=== PATIENT | female | born 1990 | race Caucasian/White ===

== ENCOUNTER → 2018-02-23 | Outpatient (CLI) | payer OTHER | END | disposition home or self-care (01) | LOC: RAD 11:57 | PROVIDERS: ATTEND Internal Medicine Hematology & Oncology | DX: R76.12 Nonspecific reaction to cell mediated immunity measurement of gamma interferon antigen response without active tuberculosis (principal) | CPT/HCPCS: 71045 ==

== ENCOUNTER → 2018-07-15 | Outpatient (CLI) | payer OTHER | END | disposition home or self-care (01) | LOC: LAB 08:23 | PROVIDERS: ATTEND Obstetrics & Gynecology | DX: E22.1 Hyperprolactinemia (principal) | CPT/HCPCS: 36415; 84146 ==

== ENCOUNTER → 2018-07-22 | Outpatient (CLI) | payer OTHER ==
[2018-07-22 09:06] LABS: ALANINE AMINOTRANSFERASE 42 U/L (12-78); ALBUMIN 3.8 g/dL (3.4-5.0); ANION GAP 7 mmol/L (5-15); CALCIUM 8.5 mg/dL (8.5-10.1); CHLORIDE 107 mmol/L (98-107); CREATININE 0.49 mg/dL (0.55-1.02)
[2018-07-22 09:09] LABS: ALKALINE PHOSPHATASE 86 U/L (45-117); BILIRUBIN,TOTAL 0.3 mg/dL (0.2-1.0); TOTAL PROTEIN 7.3 g/dL (6.4-8.2)
== END | disposition home or self-care (01) ==
LOC: LAB 08:22
PROVIDERS: ATTEND Obstetrics & Gynecology
DX: R79.9 Abnormal finding of blood chemistry, unspecified (principal)
CPT/HCPCS: 36415; 80053

== ENCOUNTER 2019-02-18 13:08 | Outpatient (CLI) | payer OTHER ==
[~2019-02-18] VITALS: Ht 154.9 cm; Wt 69.5 kg
== END 2019-02-18 15:30 | disposition home or self-care (01) ==
LOC: LDOP 13:08
PROVIDERS: ATTEND Obstetrics & Gynecology
DX: O46.92 Antepartum hemorrhage, unspecified, second trimester (principal); O32.1XX0 Maternal care for breech presentation, not applicable or unspecified; Z3A.23 23 weeks gestation of pregnancy
CPT/HCPCS: 59025; 76815; 99211; G0463

== ENCOUNTER → 2019-03-17 | Outpatient (CLI) | payer OTHER ==
[2019-03-17 09:29] LABS: BASOPHILS # (AUTO) 0.02 x10^3/uL (0-0.1); BASOPHILS % (AUTO) 0 % (0-1); EOSINOPHILS # (AUTO) 0.02 x10^3/uL (0-0.4); EOSINOPHILS % (AUTO) 0 % (1-7); LYMPHOCYTES # (AUTO) 1.15 x10^3/uL (1-3.4); LYMPHOCYTES % (AUTO) 15 % (22-44); MD NO; MEAN CORPUSCULAR HEMOGLOBIN 26.2 pg (27.0-34.8); MEAN CORPUSCULAR HGB CONC 32.6 g/dL (32.4-35.8); MEAN CORPUSCULAR VOLUME 80.5 fL (80-100); MEAN PLATELET VOLUME 6.8 fL (7.4-10.4); MONOCYTES # (AUTO) 0.42 x10^3/uL (0.2-0.8); MONOCYTES % (AUTO) 6 % (2-9); NEUTROPHILS # (AUTO) 5.96 x10^3/uL (1.8-6.8); NEUTROPHILS % (AUTO) 79 % (42-75); PLATELET COUNT 352 x10^3/uL (130-400); RED BLOOD COUNT 4.55 x10^6/uL (3.82-5.3); RED CELL DISTRIBUTION WIDTH 13.8 % (9.6-15.2)
== END | disposition home or self-care (01) ==
LOC: LAB 07:55
PROVIDERS: ATTEND Obstetrics & Gynecology
DX: Z34.82 Encounter for supervision of other normal pregnancy, second trimester (principal)
CPT/HCPCS: 36415; 82728; 82950; 85025; 86592

== ENCOUNTER 2019-04-19 11:14 | Outpatient (CLI) | payer OTHER ==
[2019-04-19 11:24] LABS: MEAN CORPUSCULAR HEMOGLOBIN 26.8 pg (27.0-34.8); MEAN CORPUSCULAR HGB CONC 32.7 g/dL (32.4-35.8); MEAN PLATELET VOLUME 6.6 fL (7.4-10.4); PLATELET COUNT 339 x10^3/uL (130-400); RED BLOOD COUNT 4.73 x10^6/uL (3.82-5.3); RED CELL DISTRIBUTION WIDTH 14.6 % (9.6-15.2)
== END 2019-04-19 23:59 | disposition home or self-care (01) ==
LOC: LAB 11:14
PROVIDERS: ATTEND Obstetrics & Gynecology
DX: O99.019 Anemia complicating pregnancy, unspecified trimester (principal); Z3A.36 36 weeks gestation of pregnancy
CPT/HCPCS: 36415; 82728; 85027

== ENCOUNTER 2019-06-01 05:50 | Inpatient (IN) | payer OTHER ==
[~2019-06-01] VITALS: Ht 154.9 cm; Wt 77.3 kg
[2019-06-01 06:19] VITALS: BP 149/75
[2019-06-01] MEDS ORDERED: OXYTOCIN 30U/ 0.9% NaCL 500ML 500 ML IV ONE (06:43)
[2019-06-01] MEDS ORDERED: D5%-LACTATED RINGERS 1,000 ML IV SCH (06:43)
[2019-06-01] MEDS ORDERED: FENTANYL PF 100 MCG/2ML IVPush PRN (07:00)
[2019-06-01] MEDS ORDERED: FENTANYL PF 100 MCG/2ML IV PRN (07:00)
[2019-06-01] MEDS ORDERED: ONDANSETRON 2MG/ML, 2ML IVPush PRN (07:00)
[2019-06-01] MEDS ORDERED: SODIUM CITRATE/CITRIC ACID 15 ML UDC PO PRN (07:00)
[2019-06-01] MEDS ORDERED: [UNRECOGNIZED DRUG - OTHER] IV PRN ×2 (07:00→10:34)
[2019-06-01] MEDS ORDERED: METOCLOPRAMIDE 5 MG/ML, 2ML IVPush PRN (07:00)
[2019-06-01] MEDS ORDERED: TERBUTALINE 1 MG/ML, 1ML SQ PRN (07:00)
[2019-06-01] MEDS ORDERED: FENTANYL PF 100 MCG/2ML ONE (07:35)
[2019-06-01 07:47] LABS: BASOPHILS # (AUTO) 0.02 x10^3/uL (0-0.1); BASOPHILS % (AUTO) 0 % (0-1); EOSINOPHILS # (AUTO) 0.01 x10^3/uL (0-0.4); EOSINOPHILS % (AUTO) 0 % (1-7); LYMPHOCYTES # (AUTO) 1.03 x10^3/uL (1-3.4); LYMPHOCYTES % (AUTO) 12 % (22-44); MD NO; MEAN CORPUSCULAR HEMOGLOBIN 26.3 pg (27.0-34.8); MEAN CORPUSCULAR HGB CONC 32.5 g/dL (32.4-35.8); MEAN PLATELET VOLUME 6.9 fL (7.4-10.4); MONOCYTES # (AUTO) 0.49 x10^3/uL (0.2-0.8); MONOCYTES % (AUTO) 6 % (2-9); NEUTROPHILS # (AUTO) 7.19 x10^3/uL (1.8-6.8); NEUTROPHILS % (AUTO) 82 % (42-75); PLATELET COUNT 299 x10^3/uL (130-400); RED BLOOD COUNT 5.04 x10^6/uL (3.82-5.3); RED CELL DISTRIBUTION WIDTH 15.5 % (9.6-15.2)
[2019-06-01] MEDS: LACTATED RINGERS 1,000 ML IV SCH ×2 (07:55→12:16)
[2019-06-01] MEDS ORDERED: REMIFENTANIL 3 MG/30 ML PCA IV PRN (08:00)
[2019-06-01] MEDS ORDERED: NEWBORN KIT ONE (09:13)
[2019-06-01 09:37] LABS: MICROSCOPIC INDICATED
[2019-06-01] MEDS ORDERED: ONDANSETRON 2MG/ML, 2ML ONE (10:15)
[2019-06-01] MEDS ORDERED: MISOPROSTOL 200 MCG TABLET ONE (10:37)
[2019-06-01] MEDS ORDERED: LIDOCAINE 1%, 20ML ONE (10:37)
[2019-06-01] MEDS ORDERED: OXYTOCIN 30U/ 0.9% NaCL 500ML 500 ML ONE (11:11)
[2019-06-01] MEDS: OXYTOCIN 30U/ 0.9% NaCL 500ML 500 ML IV SCH ×2 (11:38→21:38)
[2019-06-01] MEDS: PRENATAL VIT/IRON/FA 1 EACH TABLET PO SCH (12:00)
[2019-06-01] MEDS ORDERED: OXYcodone/APAP 5/325MG TABLET PO PRN ×2 (12:00)
[2019-06-01] MEDS ORDERED: CALCIUM CARBONATE 500 MG TAB.CHEW PO PRN (12:00)
[2019-06-01] MEDS ORDERED: ONDANSETRON 2MG/ML, 2ML IV PRN (12:00)
[2019-06-01] MEDS ORDERED: DOCUSATE 100 MG CAPSULE PO PRN (12:00)
[2019-06-01] MEDS ORDERED: MISOPROSTOL 200 MCG TABLET PR PRN (12:00)
[2019-06-01] MEDS ORDERED: IBUPROFEN 600 MG TABLET ONE (12:13)
[2019-06-01] MEDS: IBUPROFEN 600 MG TABLET PO PRN ×2 (12:14→22:51)
[2019-06-01 12:37] LABS: ALANINE AMINOTRANSFERASE 11 U/L (12-78); ALBUMIN 2.3 g/dL (3.4-5.0); ANION GAP 12 mmol/L (5-15); CHLORIDE 107 mmol/L (98-107); CREATININE 0.37 mg/dL (0.55-1.02)
[2019-06-01 12:39] LABS: ALKALINE PHOSPHATASE 101 U/L (45-117); BILIRUBIN,TOTAL 0.2 mg/dL (0.2-1.0); TOTAL PROTEIN 5.7 g/dL (6.4-8.2)
[2019-06-01 13:30] VITALS: BP 135/79
[2019-06-01 16:30] VITALS: BP 137/83
[2019-06-01 19:09] LABS: BASOPHILS # (AUTO) 0.03 x10^3/uL (0-0.1); BASOPHILS % (AUTO) 0 % (0-1); EOSINOPHILS % (AUTO) 1 % (1-7); LYMPHOCYTES # (AUTO) 1.28 x10^3/uL (1-3.4); LYMPHOCYTES % (AUTO) 13 % (22-44); MEAN CORPUSCULAR HEMOGLOBIN 27.3 pg (27.0-34.8); MEAN CORPUSCULAR HGB CONC 33.2 g/dL (32.4-35.8); MEAN CORPUSCULAR VOLUME 82.2 fL (80-100); MEAN PLATELET VOLUME 7.3 fL (7.4-10.4); MONOCYTES # (AUTO) 0.81 x10^3/uL (0.2-0.8); MONOCYTES % (AUTO) 8 % (2-9); NEUTROPHILS # (AUTO) 8.02 x10^3/uL (1.8-6.8); NEUTROPHILS % (AUTO) 78 % (42-75); PLATELET COUNT 272 x10^3/uL (130-400); RED BLOOD COUNT 4.15 x10^6/uL (3.82-5.3); RED CELL DISTRIBUTION WIDTH 15.6 % (9.6-15.2)
[2019-06-01 19:10] LABS: MD NO
[2019-06-02] VITALS: BP 121/81
[2019-06-02 04:00] VITALS: BP 130/81
[2019-06-02 08:08] VITALS: BP 135/82
[2019-06-02] MEDS: PRENATAL VIT/IRON/FA 1 EACH TABLET PO SCH (08:40)
[2019-06-02] MEDS ORDERED: IBUP-1222 PO (11:11)
== END 2019-06-02 13:30 | disposition home or self-care (01) | DRG 807 ==
LOC: LDOP 05:50 → LDIP 06:39 → 2NW 13:37
PROVIDERS: ADMIT Obstetrics & Gynecology; ATTEND Obstetrics & Gynecology
PROC: 10E0XZZ Delivery of Products of Conception, External Approach (ICD-10-PCS; principal; 2019-06-01)
PROC: 0KQM0ZZ Repair Perineum Muscle, Open Approach (ICD-10-PCS; 2019-06-01)
PROC: 10907ZC Drainage of Amniotic Fluid, Therapeutic from Products of Conception, Via Natural or Artificial Opening (ICD-10-PCS; 2019-06-01)
DX: O99.02 Anemia complicating childbirth (principal); Z37.0 Single live birth; O70.1 Second degree perineal laceration during delivery; D50.9 Iron deficiency anemia, unspecified; O75.89 Other specified complications of labor and delivery; O99.344 Other mental disorders complicating childbirth; F41.8 Other specified anxiety disorders; Z3A.38 38 weeks gestation of pregnancy; M41.9 Scoliosis, unspecified
CPT/HCPCS: 36415; 80053; 81001; 84550; 85025; 86850; 86900; 89060; G0378; J2405; J3010; J2590; J7120; Q0114

== ENCOUNTER 2020-04-02 14:43 | Outpatient (CLI) | payer OTHER ==
[~2020-04-02 14:43] MED LIST: IBUP-1222 PO
[2020-04-02] MEDS ORDERED: PREN1TAB10 PO (15:06)
== END 2020-04-02 23:59 | disposition home or self-care (01) ==
LOC: STAR 14:43
PROVIDERS: ATTEND Thoracic Surgery (Cardiothoracic Vascular Surgery)
DX: Z02.9 Encounter for administrative examinations, unspecified (principal)

== ENCOUNTER 2020-10-17 16:27 | Outpatient (CLI) | payer OTHER ==
[~2020-10-17 16:27] MED LIST changes: +PREN1TAB10 PO
[2020-10-17 16:50] LABS: BASOPHILS % (AUTO) 0 % (0-1); EOSINOPHILS % (AUTO) 1 % (1-7); LYMPHOCYTES % (AUTO) 22 % (22-44); MEAN CORPUSCULAR HEMOGLOBIN 27.2 pg (27.0-34.8); MEAN CORPUSCULAR HGB CONC 33.6 g/dL (32.4-35.8); MEAN PLATELET VOLUME 6.7 fL (7.4-10.4); MONOCYTES % (AUTO) 9 % (2-9); NEUTROPHILS % (AUTO) 68 % (42-75); PLATELET COUNT 334 x10^3/uL (130-400); RED CELL DISTRIBUTION WIDTH 13.7 % (9.6-15.2)
[2020-10-17 16:56] LABS: MD NO
== END 2020-10-17 23:59 | disposition home or self-care (01) ==
LOC: LAB 16:27
PROVIDERS: ATTEND Obstetrics & Gynecology
DX: Z34.81 Encounter for supervision of other normal pregnancy, first trimester (principal); Z3A.00 Weeks of gestation of pregnancy not specified
CPT/HCPCS: 36415; 82728; 85025; 86592; 86762; 86850; 86900; 87086; 87340; 87806; G0475

== ENCOUNTER → 2021-01-31 | Outpatient (CLI) | payer OTHER ==
[2021-01-31 10:30] LABS: BASOPHILS % (AUTO) 0 % (0-1); EOSINOPHILS % (AUTO) 1 % (1-7); LYMPHOCYTES % (AUTO) 14 % (22-44); MEAN CORPUSCULAR HEMOGLOBIN 28.2 pg (27.0-34.8); MEAN CORPUSCULAR HGB CONC 33.9 g/dL (32.4-35.8); MEAN PLATELET VOLUME 6.5 fL (7.4-10.4); MONOCYTES % (AUTO) 6 % (2-9); NEUTROPHILS % (AUTO) 80 % (42-75); PLATELET COUNT 329 x10^3/uL (130-400); RED BLOOD COUNT 4.72 x10^6/uL (3.82-5.3); RED CELL DISTRIBUTION WIDTH 14.2 % (9.6-15.2)
[2021-01-31 10:32] LABS: MD NO
== END | disposition home or self-care (01) ==
LOC: LAB 08:44
PROVIDERS: ATTEND Clinical Nurse Specialist Women's Health
DX: Z34.82 Encounter for supervision of other normal pregnancy, second trimester (principal)
CPT/HCPCS: 36415; 82950; 85025; 86592

== ENCOUNTER 2021-03-22 13:25 | Inpatient (IN) | payer OTHER ==
[~2021-03-22] VITALS: Ht 154.9 cm; Wt 71.3 kg
[2021-03-22 13:43] VITALS: BP 133/75
[2021-03-22] MEDS ORDERED: TERBUTALINE 1 MG/ML, 1ML ONE (13:54)
[2021-03-22 14:00] LABS: MICROSCOPIC INDICATED
[2021-03-22] MEDS ORDERED: TERBUTALINE 1 MG/ML, 1ML SQ ONE (14:00)
[2021-03-22] MEDS ORDERED: BETAMETHASONE 6 MG/ML, 5ML IM ONE (14:53)
[2021-03-22] MEDS ORDERED: MAGNESIUM SULFATE PMX 4GM/100M 100 ML ONE (14:53)
[2021-03-22] MEDS ORDERED: MAGNESIUM SULF. PMX 20GM/500ML 500 ML IV ONE (14:53)
[2021-03-22] MEDS: BETAMETHASONE 6 MG/ML, 5ML IM SCH (14:59)
[2021-03-22] MEDS ORDERED: MAGNESIUM SULFATE PMX 4GM/100M 100 ML IVPB ONE (15:00)
[2021-03-22] MEDS: LACTATED RINGERS 1,000 ML IV PRN ×2 (15:05→22:13)
[2021-03-22] MEDS: MAGNESIUM SULF. PMX 20GM/500ML 500 ML IV SCH (16:06)
[2021-03-22 16:10] LABS: BASOPHILS % (AUTO) 0 % (0-1); EOSINOPHILS % (AUTO) 0 % (1-7); LYMPHOCYTES % (AUTO) 13 % (22-44); MD NO; MEAN CORPUSCULAR HEMOGLOBIN 27.9 pg (27.0-34.8); MEAN CORPUSCULAR HGB CONC 33.6 g/dL (32.4-35.8); MEAN PLATELET VOLUME 6.6 fL (7.4-10.4); MONOCYTES % (AUTO) 7 % (2-9); NEUTROPHILS % (AUTO) 80 % (42-75); PLATELET COUNT 292 x10^3/uL (130-400); RED BLOOD COUNT 4.84 x10^6/uL (3.82-5.3); RED CELL DISTRIBUTION WIDTH 14.2 % (9.6-15.2)
[2021-03-22] MEDS: NITROFURANTOIN (MACROBID) 100 MG CAPSULE PO SCH (19:07)
[2021-03-22 20:44] VITALS: BP 121/65
[2021-03-23] MEDS: MAGNESIUM SULF. PMX 20GM/500ML 500 ML IV SCH ×2 (00:07→09:53)
[2021-03-23] MEDS: NITROFURANTOIN (MACROBID) 100 MG CAPSULE PO SCH ×2 (07:23→19:14)
[2021-03-23] MEDS: LACTATED RINGERS 1,000 ML IV PRN (11:01)
[2021-03-23] MEDS: BETAMETHASONE 6 MG/ML, 5ML IM SCH (14:49)
[2021-03-24] MEDS: NITROFURANTOIN (MACROBID) 100 MG CAPSULE PO SCH (07:24)
[2021-03-24] MEDS: LACTATED RINGERS 1,000 ML IV PRN (07:29)
[2021-03-24 07:30] VITALS: BP 94/53
[2021-03-24] MEDS ORDERED: LIDOCAINE 1%, 20ML ONE (09:39)
[2021-03-24] MEDS ORDERED: NIFE10CA PO (18:30)
== END 2021-03-24 18:50 | disposition home or self-care (01) | DRG 833 ==
LOC: LDOP 13:25 → LDIP 14:49
PROVIDERS: ADMIT Obstetrics & Gynecology; ATTEND Obstetrics & Gynecology
DX: O60.03 Preterm labor without delivery, third trimester (principal); Z20.822 Contact with and (suspected) exposure to COVID-19; Z3A.32 32 weeks gestation of pregnancy
CPT/HCPCS: 36415; 76815; 81001; 83735; 85025; 86850; 86900; 87081; 87086; 87635; G0378; J0702; J3105; J3475; J7120

== ENCOUNTER 2021-04-07 16:16 | Outpatient (CLI) | payer OTHER ==
[~2021-04-07] VITALS: Ht 154.9 cm; Wt 70.9 kg
[~2021-04-07 16:16] MED LIST changes: +NIFE10CA PO
[2021-04-07 16:39] VITALS: BP 132/80
[2021-04-07 16:41] LABS: BASOPHILS % (AUTO) 0 % (0-1); EOSINOPHILS % (AUTO) 1 % (1-7); LYMPHOCYTES % (AUTO) 14 % (22-44); MEAN CORPUSCULAR HEMOGLOBIN 28.1 pg (27.0-34.8); MEAN CORPUSCULAR HGB CONC 34.1 g/dL (32.4-35.8); MEAN PLATELET VOLUME 6.5 fL (7.4-10.4); MONOCYTES % (AUTO) 8 % (2-9); NEUTROPHILS % (AUTO) 77 % (42-75); PLATELET COUNT 281 x10^3/uL (130-400); RED BLOOD COUNT 4.87 x10^6/uL (3.82-5.3); RED CELL DISTRIBUTION WIDTH 14.5 % (9.6-15.2)
[2021-04-07 16:49] LABS: MD NO
[2021-04-07 16:51] LABS: ALANINE AMINOTRANSFERASE 15 U/L (12-78); ALBUMIN 2.8 g/dL (3.4-5.0); ANION GAP 8 mmol/L (5-15); CALCIUM 9.1 mg/dL (8.5-10.1); CHLORIDE 109 mmol/L (98-107); CREATININE 0.26 mg/dL (0.55-1.02)
[2021-04-07 16:52] LABS: CREATININE,URINE RANDOM 80.4 mg/dL
[2021-04-07 16:54] LABS: ALKALINE PHOSPHATASE 106 U/L (45-117); BILIRUBIN,TOTAL 0.3 mg/dL (0.2-1.0); TOTAL PROTEIN 6.5 g/dL (6.4-8.2)
[2021-04-07 17:00] LABS: MICROSCOPIC INDICATED
== END 2021-04-07 19:40 | disposition home or self-care (01) ==
LOC: LDOP 16:16
PROVIDERS: ATTEND Obstetrics & Gynecology
DX: O99.891 Other specified diseases and conditions complicating pregnancy (principal); N13.30 Unspecified hydronephrosis; O16.3 Unspecified maternal hypertension, third trimester; Z3A.34 34 weeks gestation of pregnancy
CPT/HCPCS: 36415; 59025; 76770; 80053; 81001; 82570; 84156; 84550; 85025

== ENCOUNTER → 2021-05-05 | Outpatient (CLI) | payer OTHER ==
[2021-05-05 15:46] VITALS: BP 120/75
[2021-05-05 15:58] LABS: BASOPHILS % (AUTO) 0 % (0-1); EOSINOPHILS % (AUTO) 1 % (1-7); LYMPHOCYTES % (AUTO) 13 % (22-44); MEAN CORPUSCULAR HGB CONC 33.9 g/dL (32.4-35.8); MEAN PLATELET VOLUME 6.5 fL (7.4-10.4); MONOCYTES % (AUTO) 6 % (2-9); NEUTROPHILS % (AUTO) 80 % (42-75); PLATELET COUNT 260 x10^3/uL (130-400); RED BLOOD COUNT 4.71 x10^6/uL (3.82-5.3); RED CELL DISTRIBUTION WIDTH 14.4 % (9.6-15.2)
[2021-05-05 16:15] LABS: ALBUMIN 2.5 g/dL (3.4-5.0); CALCIUM 8.9 mg/dL (8.5-10.1); CHLORIDE 111 mmol/L (98-107)
[2021-05-05 16:21] LABS: ALANINE AMINOTRANSFERASE 17 U/L (12-78); ALKALINE PHOSPHATASE 110 U/L (45-117); ANION GAP 10 mmol/L (5-15); BILIRUBIN,TOTAL 0.3 mg/dL (0.2-1.0); CREATININE 0.32 mg/dL (0.55-1.02); TOTAL PROTEIN 6.3 g/dL (6.4-8.2)
[2021-05-05 16:28] LABS: BILIRUBIN, DIRECT < 0.1 mg/dL (0.1-0.2)
[2021-05-05 18:30] LABS: MICROSCOPIC INDICATED
== END | disposition home or self-care (01) ==
LOC: LDOP 15:32
PROVIDERS: ATTEND Obstetrics & Gynecology
DX: O16.9 Unspecified maternal hypertension, unspecified trimester (principal); Z3A.00 Weeks of gestation of pregnancy not specified
CPT/HCPCS: 36415; 59025; 80053; 81001; 82248; 82570; 84156; 84550; 85025

== ENCOUNTER 2021-05-08 17:33 | Inpatient (IN) | payer OTHER ==
[~2021-05-08] VITALS: Ht 154.9 cm; Wt 74.1 kg
[2021-05-08] MEDS ORDERED: OXYTOCIN 30U/ 0.9% NaCL 500ML 500 ML IV ONE (18:30)
[2021-05-08] MEDS ORDERED: LACTATED RINGERS 1,000 ML IV SCH (18:30)
[2021-05-08] MEDS ORDERED: D5%-LACTATED RINGERS 1,000 ML IV SCH (18:30)
[2021-05-08] MEDS ORDERED: TERBUTALINE 1 MG/ML, 1ML IVPush PRN (18:30)
[2021-05-08] MEDS ORDERED: PLEASE ENTER HEIGHT AND WEIGHT MC SCH (18:30)
[2021-05-08] MEDS ORDERED: FENTANYL PF 100 MCG/2ML IV PRN (18:30)
[2021-05-08] MEDS ORDERED: FENTANYL PF 100 MCG/2ML IVPush PRN (18:30)
[2021-05-08] MEDS ORDERED: TERBUTALINE 1 MG/ML, 1ML SQ PRN (18:30)
[2021-05-08] MEDS ORDERED: ONDANSETRON 2MG/ML, 2ML IVPush PRN (18:30)
[2021-05-08 18:35] LABS: BASOPHILS % (AUTO) 1 % (0-1); EOSINOPHILS % (AUTO) 0 % (1-7); LYMPHOCYTES % (AUTO) 14 % (22-44); MEAN CORPUSCULAR HGB CONC 34.3 g/dL (32.4-35.8); MEAN PLATELET VOLUME 6.7 fL (7.4-10.4); MONOCYTES % (AUTO) 7 % (2-9); NEUTROPHILS % (AUTO) 78 % (42-75); PLATELET COUNT 288 x10^3/uL (130-400); RED CELL DISTRIBUTION WIDTH 14.4 % (9.6-15.2)
[2021-05-08 19:30] VITALS: BP 140/81
[2021-05-08] MEDS ORDERED: REMIFENTANIL 3 MG in SODIUM CHLORIDE 0.9% 30 ML IV SCH (19:30)
[2021-05-08] MEDS ORDERED: NALOXONE 0.4 MG/ML, 1ML IVPush PRN (19:30)
[2021-05-08] MEDS ORDERED: NEWBORN KIT ONE (22:11)
[2021-05-08] MEDS ORDERED: LIDOCAINE 1%, 20ML ONE (22:18)
[2021-05-08] MEDS ORDERED: IBUPROFEN 600 MG TABLET ONE (22:41)
[2021-05-08] MEDS ORDERED: MISOPROSTOL 200 MCG TABLET PR PRN (23:00)
[2021-05-08] MEDS ORDERED: SIMETHICONE 80 MG CHEW TAB PO PRN (23:00)
[2021-05-08] MEDS ORDERED: OXYcodone/APAP 5/325MG TABLET PO PRN ×2 (23:00)
[2021-05-08] MEDS ORDERED: ONDANSETRON 2MG/ML, 2ML IV PRN (23:00)
[2021-05-08] MEDS ORDERED: ACETAMINOPHEN 325 MG TABLET PO PRN ×2 (23:00)
[2021-05-08] MEDS ORDERED: MAGNESIUM HYDROXIDE 8%, 30ML UDC PO PRN (23:00)
[2021-05-08] MEDS ORDERED: DIPH,PERTUSS(ACELL),TET VAC/PF NC IM-VACC PRN (23:00)
[2021-05-08] MEDS ORDERED: RHOGAM FROM BLOOD BANK 1 NOTE EA IM/IV ONE (23:00)
[2021-05-08] MEDS: IBUPROFEN 600 MG TABLET PO PRN (23:00)
[2021-05-08] MEDS: OXYTOCIN 30U/ 0.9% NaCL 500ML 500 ML IV SCH (23:32)
[2021-05-09 01:00] VITALS: BP 104/67
[2021-05-09 04:44] VITALS: BP 113/61
[2021-05-09 06:12] LABS: BASOPHILS % (AUTO) 0 % (0-1); EOSINOPHILS % (AUTO) 0 % (1-7); LYMPHOCYTES % (AUTO) 14 % (22-44); MEAN CORPUSCULAR HEMOGLOBIN 27.7 pg (27.0-34.8); MEAN CORPUSCULAR HGB CONC 33.8 g/dL (32.4-35.8); MEAN PLATELET VOLUME 6.7 fL (7.4-10.4); MONOCYTES % (AUTO) 9 % (2-9); NEUTROPHILS % (AUTO) 77 % (42-75); PLATELET COUNT 268 x10^3/uL (130-400); RED BLOOD COUNT 4.54 x10^6/uL (3.82-5.3); RED CELL DISTRIBUTION WIDTH 14.5 % (9.6-15.2)
[2021-05-09 08:33] VITALS: BP 126/81
[2021-05-09] MEDS: PRENATAL VIT/IRON/FA 1 EACH TABLET PO SCH (08:41)
[2021-05-09] MEDS: IBUPROFEN 600 MG TABLET PO PRN (08:42)
[2021-05-09] MEDS: DOCUSATE 100 MG CAPSULE PO PRN (08:42)
[2021-05-09] MEDS: OXYTOCIN 30U/ 0.9% NaCL 500ML 500 ML IV SCH ×2 (09:00→19:00)
[2021-05-09 12:00] VITALS: BP 118/76
[2021-05-09 16:40] VITALS: BP 122/77
[2021-05-09 20:30] VITALS: BP 123/79
[2021-05-10] MEDS: OXYTOCIN 30U/ 0.9% NaCL 500ML 500 ML IV SCH (05:00)
[2021-05-10] MEDS: DOCUSATE 100 MG CAPSULE PO PRN (09:00)
[2021-05-10] MEDS: PRENATAL VIT/IRON/FA 1 EACH TABLET PO SCH (09:00)
[2021-05-10 09:15] VITALS: BP 127/83
[2021-05-10] MEDS ORDERED: IBUP-1222 PO (10:48)
== END 2021-05-10 11:30 | disposition home or self-care (01) | DRG 807 ==
LOC: LDOP 17:33 → LDIP 18:12 → 2NW 05-09 00:59
PROVIDERS: ADMIT Obstetrics & Gynecology; ATTEND Obstetrics & Gynecology
PROC: 10E0XZZ Delivery of Products of Conception, External Approach (ICD-10-PCS; principal; 2021-05-08)
PROC: 0KQM0ZZ Repair Perineum Muscle, Open Approach (ICD-10-PCS; 2021-05-08)
PROC: 3E033VJ Introduction of Other Hormone into Peripheral Vein, Percutaneous Approach (ICD-10-PCS; 2021-05-08)
DX: O70.1 Second degree perineal laceration during delivery (principal); Z37.0 Single live birth; Z3A.38 38 weeks gestation of pregnancy
CPT/HCPCS: 36415; 85025; 86592; 86850; 86900; G0378; J2405; J3010; J2590; J7120

== ENCOUNTER 2021-07-08 14:34 | Outpatient (CLI) | payer OTHER | END 2021-07-08 23:59 | disposition home or self-care (01) | LOC: RAD 14:34 | PROVIDERS: ATTEND Obstetrics & Gynecology | DX: R31.9 Hematuria, unspecified (principal) | CPT/HCPCS: 76770 ==

== ENCOUNTER → 2021-08-08 | Outpatient (CLI) | payer OTHER ==
[2021-08-08 12:52] LABS: MICROSCOPIC AUTO
== END | disposition home or self-care (01) ==
LOC: LAB 12:14
PROVIDERS: ATTEND Obstetrics & Gynecology
DX: Z30.430 Encounter for insertion of intrauterine contraceptive device (principal); R31.9 Hematuria, unspecified
CPT/HCPCS: 36415; 81001; 84702; 87086